=== PATIENT | male | born 1940 | race Caucasian/White ===

== ENCOUNTER → 2017-04-06 | Outpatient (CLI) | payer OTHER, MEDICARE ==
[~2017-04-06] MED LIST: ALTACE10 MG; BYETTA PEN 11 PENIN1 SUBQ; CALCIUM500 M1 PO; CENTRUM MEN'S1 EACH PO; FISH OIL 1,001000 M2 PO; FLONASE 0.05%50 MCG NASAL; HUMULINR100; HYDRALAZINE 2525 MG; HYDROCHLOROTH12.5 M1; LANTUS100 UNIT/M SUBQ; METFORMIN HCL500 MG PO; NORVASC2.5 MG; PIOGLITAZONE15 MG; PRAVACHOL20 MG; PRESERVISION A1 EAC2 PO; PREVACID30 MG PO; TOPROL XL25 MG; TRAMADOL 50 MG50 MG PO; ZYRTEC10 MG PO
== END | disposition home or self-care (01) ==
LOC: RAD 10:05
DX: S73.101A Unspecified sprain of right hip, initial encounter (principal); X58.XXXA Exposure to other specified factors, initial encounter; Y93.9 Activity, unspecified; Y92.89 Other specified places as the place of occurrence of the external cause; Y99.9 Unspecified external cause status

== ENCOUNTER → 2018-03-26 | Outpatient (CLI) | payer OTHER, MEDICARE | END | disposition home or self-care (01) | LOC: RAD 06:33 | DX: M25.552 Pain in left hip (principal); I10 Essential (primary) hypertension; E11.9 Type 2 diabetes mellitus without complications; E78.00 Pure hypercholesterolemia, unspecified; K21.9 Gastro-esophageal reflux disease without esophagitis; G47.33 Obstructive sleep apnea (adult) (pediatric); Z98.890 Other specified postprocedural states; Z79.891 Long term (current) use of opiate analgesic; Z79.4 Long term (current) use of insulin; Z79.899 Other long term (current) drug therapy ==